=== PATIENT | male | born 1955 | race Hispanic/Latino ===

== ENCOUNTER 2022-02-16 17:51 | Emergency (ER) | payer SELFPAY ==
[2022-02-16] MEDS ORDERED: Boostrix 0.5 ML (Tdap) VIAL (>/=7 yrs of age) ONE (18:43)
== END 2022-02-16 18:51 | disposition home or self-care (01) ==
LOC: BURERS 17:51
DX: S61.215A Laceration without foreign body of left ring finger without damage to nail, initial encounter (principal); Z23 Encounter for immunization; W26.9XXA Contact with unspecified sharp object(s), initial encounter
CPT/HCPCS: 12001; 90471; 90715

== ENCOUNTER 2022-02-26 11:11 | Emergency (ER) | payer SELFPAY | END 2022-02-26 11:46 | disposition home or self-care (01) | LOC: BURERS 11:11 | DX: S61.215D Laceration without foreign body of left ring finger without damage to nail, subsequent encounter (principal) ==

== ENCOUNTER 2022-11-01 13:36 | Emergency (ER) | payer MEDICARE, SELFPAY ==
[2022-11-01 14:15] LABS: #Basophils 0.1 thou/uL (0.0-0.2); #Lymphocytes 1.1 thou/uL (1.20-3.40); #Monocytes 0.8 thou/uL (0.11-0.59); #Neutrophils 11.9 thou/uL (1.40-6.50); %Basophils 0.6 % (0.0-1.0); %Eosinophils 0.1 % (0.0-10.0); %Lymphocytes 8.2 % (21.0-51.0); %Neutrophils 85.2 % (42.0-75.0); Hematocrit 42.2 % (42.0-52.0); Hemoglobin 15.7 g/dL (14.0-18.0); Mean Corpuscular HGB CONC 37.2 g/dL (32.0-36.0); Mean Corpuscular Hemoglobin 39.2 pg (27.0-31.0); Platelet Count 136 10x3/uL (130-400); RBC Distribution Width 10.7 % (11.5-14.5)
[2022-11-01 14:24] LABS: MDiff Complete? YES; Macrocytosis SLIGHT = 6-15 cells (100X) (0-5/hpf); Polychromasia MODERATE = 3-4 cells (100X) (0-2/hpf)
[2022-11-01] MEDS ORDERED: Acetaminophen 500 MG TAB ONE (14:25)
[2022-11-01 14:31] LABS: ALT (SGPT) 25 U/L (8-55); AST (SGOT) 20 U/L (5-34); Albumin 4.1 g/dL (3.4-4.8); Alkaline Phosphatase 65 U/L (40-110); Anion Gap 16 mmol/L (10-20); BUN (Urea Nitrogen) 13 mg/dL (8.4-25.7); Bilirubin, Total 2.8 mg/dL (0.2-1.2); Calc. Creatinine Clearance 0 mL/min (70-130); Calcium 8.3 mg/dL (7.8-10.44); Carbon Dioxide 20 mmol/L (23-31); Chloride 104 mmol/L (98-107); Estimated GFR 92; Globulin 2.8 g/dL (2.4-3.5); Glucose 156 mg/dL (80-115); Potassium 3.7 mmol/L (3.5-5.1); Protein, Total 6.9 g/dL (5.8-8.1); Sodium 136 mmol/L (136-145)
[2022-11-01 14:32] LABS: Troponin I Less than 0.010 ng/mL (< 0.028)
[2022-11-01] MEDS ORDERED: CEFAZOLIN 1 GM VIAL ONE (14:35)
[2022-11-01] MEDS ORDERED: Sodium Chloride 0.9% 100 ML ONE (14:36)
[2022-11-01 15:08] LABS: SARS-CoV-2 NAA Rapid Test Not Detected (NotDetected)
[2022-11-01 15:11] LABS: Bilirubin Negative (Negative); Blood, Urine Trace (Negative); Clarity Cloudy (Clear); Glucose, Urine (Dipstick) 100 mg/dL (Negative); Ketone, Urine Trace mg/dL (Negative); Leukocyte Small (Negative); Nitrite Negative (Negative); Protein, Urine (Dipstick) 100 mg/dL (Neg-Trace); Urobilinogen > or = 8.0 mg/dL (Less than 2); pH, Urine 8.5 (5.0-9.0)
[2022-11-01 15:16] LABS: RBC/HPF 0-3 HPF (0-3)
[2022-11-01 15:17] LABS: Bacteria/HPF 2+ HPF (None Seen); CAUTI Indications for Culture Dysuria,urgency,freq; Squamous Epithelial None Seen HPF (0-3); WBC/HPF Greater Than 50 HPF (0-3)
[2022-11-01 15:18] LABS: Urine Culture Reflex Yes Yes
== END 2022-11-01 16:22 | disposition short-term general hospital (02) ==
LOC: BURERS 13:36
DX: A41.9 Sepsis, unspecified organism (principal); N39.0 Urinary tract infection, site not specified; Z20.822 Contact with and (suspected) exposure to COVID-19
CPT/HCPCS: 71045; 80053; 81001; 83605; 83880; 84484; 85025; 87040; 87077; 87086; 87186; 93005; 96361; 96365; J0690; J3490